=== PATIENT | male | born 1960 | race Caucasian/White ===

== ENCOUNTER 2016-12-17 08:18 | Emergency (ER) | payer OTHER, SELFPAY ==
[~2016-12-17] VITALS: Ht 175.3 cm; Wt 81.9 kg
[2016-12-17 08:19] VITALS: BP 159/92
[2016-12-17] MEDS ORDERED: METHOCARBAMOL 750 MG TABLET PO ONE (09:30)
[2016-12-17] MEDS ORDERED: HYDROcodone/APAP 5/325 TABLET PO ONE (09:30)
[2016-12-17] MEDS ORDERED: KETOROLAC 30 MG/1 ML IM ONE (09:30)
[2016-12-17] MEDS ORDERED: OMEP-110 PO (09:31)
[2016-12-17] MEDS ORDERED: HYDROcodone/APAP 5/325 TABLET ONE (09:44)
[2016-12-17] MEDS ORDERED: METHOCARBAMOL 750 MG TABLET ONE (09:44)
[2016-12-17] MEDS ORDERED: KETOROLAC 30 MG/1 ML ONE (09:44)
== END 2016-12-17 11:33 | disposition home or self-care (01) ==
LOC: ED 10:26
DX: S39.012A Strain of muscle, fascia and tendon of lower back, initial encounter (principal); M46.1 Sacroiliitis, not elsewhere classified; X58.XXXA Exposure to other specified factors, initial encounter; Y93.89 Activity, other specified; Y92.89 Other specified places as the place of occurrence of the external cause; Y99.8 Other external cause status
CPT/HCPCS: 72110; 72202; 96372; 99284; J1885